=== PATIENT | female | born 1940 | race Caucasian/White ===

== ENCOUNTER → 2016-12-19 | Day surgery (SDC) | payer OTHER, BC ==
[2016-12-07 13:54] VITALS: Ht 154.9 cm; Wt 71.8 kg
[~2016-12-19] VITALS: Ht 154.9 cm; Wt 71.8 kg
[~2016-12-19] MED LIST: ACET-1256 PO; ASPI81TA21 PO; CAND1TAB19 PO; CARV12.52 PO; CHOL100010 PO; CLZ750 PO; COEN150C PO; CYAN3INJ IM; CYCL0.052 OP; CYCL0.052 OPB; GLC/500 PO; GLUCTAB6 PO; HYDR-5688 PO; IBUP-1050 PO; INDA1TAB3 PO; INSDGI SC; LIDOCAINE HCL 2% 2 ML VIAL (20MG/ML) ONE; MAGN200T3 PO; MAGNESIUM PO; METH1CAP PO; OMEG10007 PO; PRAV20TA PO; PREG1CAP28 PO; PREG1CAP70 PO; PREMARIN PO; PROPOFOL IV EMULSION 10 MG/ML 20 ML VIAL IV ONE; RANITDINE PO; RMCI INJ; RMCI IV; SODIUM CHLORIDE 0.9% 500ML 500 ML IV ONE; TRAM-10 PO; [UNRECOGNIZED DRUG - CODE] PO
--- NOTE | 2016-12-19 08:46 | Endo History and Physical ---
History & Physical Date of Service: Dec 19, 2016. Chief Complaint: ulcerative colitis Referring Physician: Dr. Ga Mott History of Present Illness 76 yo CF who presents for colonoscopy secondary to ulcerative colitis. Past Medical History Diabetes, Neurological Disorder, Arthritis, Fractures, Gastrointestinal Disorder , Reflux, Hypertension, Other Past Surgical History Hx Cardiac Surgery: No Hx Internal Defibrillator: No Hx Pacemaker: No Hx Abdominal Surgery: Yes (DIOR BSO) Hx Post-Op Nausea and Vomiting: No Hx Cancer Surgery: No Hx Thoracic Surgery: No Hx Orthopedic: Yes (LEFT BUNIONECTOMY/FOOT CORRECTION, LUMBAR FUSION) Hx Urinary Tract Surgery: No Family History None Social History Smoking Status: Never Smoker Hx Substance Use: No Hx Alcohol Use: No Allergies Coded Allergies: Naproxen (Verified Allergy, Intermediate, RASH, 12/07/16) "ITCHY AND MISERABLE" Spironolactone (Verified Adverse Reaction, Severe, fluid retention, ) Lisinopril (Verified Adverse Reaction, Mild, COUGH, 12/07/16) Oxycodone (Verified Adverse Reaction, Mild, dizziness/lightheadedness/ not feeling in control, 12/07/16) Telmisartan (Verified Adverse Reaction, Mild, swelling in legs, 12/07/16) Current Medications Reported Home Medications Medications Dose Route/Sig Max Daily Dose Days Date Category Dose Instructions Lyrica (Pregabalin) 75 Mg Cap 1 Dose PO TID 12/07/16 Reported TAKES 1 CAP IN AM TAKES 1 CAP IN AFTERNOON TAKES 2 CAPS IN PM Coreg (Carvedilol) 12.5 Mg Tab 12.5 Mg PO BID 12/07/16 Reported Pravachol (Pravastatin Sodium) 20 Mg Tab 20 Mg PO HS 12/07/16 Reported Lantus (Insulin Glargine) 100 Unit/Ml Inj 12 Units SC QPM 10/27/16 Reported Lozol (Indapamide) 1.25 Mg Tab 1.25 Mg PO QAM 02/15/16 Reported Glucophage (Metformin Hcl) 500 Mg Tab 1,000 Mg PO Q1800 02/15/16 Reported Vitamin D (Cholecalciferol) 1,000 Inter.unit Tab 1,000 Inter.unit PO HS 12/21/15 Reported Vitamin B-12 Inj (Cyanocobalamin) Inj 1 Ml IM WK 30 10/19/15 Reported Remicade (Infliximab) 100 Mg/10 Ml Inj 1 Dose IV Q8WK 07/27/15 Reported Candesartan Cilexetil 16 Mg Tab 16 Mg PO BID 07/27/15 Reported Magnesium 200 Mg Tab 250 Mg PO QAM 07/13/15 Reported Colazal (Balsalazide) 750 Mg Cap 3 Tab PO TID 07/13/15 Reported Flexi Joint (Faxkgfkfnad-Qypkeiqgvcy-Tgg-Vi) 1 Tab Tab 1 Tab PO BID 06/16/15 Reported Premarin (Estrogens, Conjugated) 0.3 Mg Tab 0.3 Mg PO 2XWK 11/14/14 Reported Restasis (Cyclosporine (Ophth)) 0.05 % Emu 1 Drop OPB BID 09/11/14 Reported Glucophage (Metformin Hcl) 500 Mg Tab 500 Mg PO QAM 08/20/13 Reported Co Q-10 (Coenzyme Q10 (Ubidecarenone)) 150 Mg Cap 400 Mg PO QAM 06/27/12 Reported [place]-3 (Fish Oil) 1 Ea Cap 1 Cap PO BID 06/27/12 Reported Ecotrin Or Generic (Aspirin) 81 Mg Tab 81 Mg PO HS 06/27/12 Reported Vital Signs Weight (Kilograms): 71.82 Height (Feet): 5 Height (Inches): 1 Date Time Temp Pulse Resp B/P Pulse Ox O2 Delivery O2 Flow Rate FiO2 12/19/16 08:42 36.5 61 18 156/72 95 Room Air Physical Exam General Appearance: WD/WN, no apparent distress Respiratory/Chest: Auscultation: breath sounds normal Cardiovascular: Heart Auscultation: RRR Abdomen: Bowel Sounds: normal Inspection & Palpation: soft, non-distended, no tenderness, guarding & rebound Assessment and Plan Assessment: 76 yo CF who presents for colonoscopy secondary to ulcerative colitis. Plan: Proceed with colonoscopy.
--- NOTE | 2016-12-19 09:51 | Discharge Instructions ---
Endoscopy Patient Instructions Date / Procedure(s) Performed Dec 19, 2016. Colonoscopy Allergy Information Coded Allergies: Naproxen (Verified Allergy, Intermediate, RASH, 12/07/16) "ITCHY AND MISERABLE" Spironolactone (Verified Adverse Reaction, Severe, fluid retention, ) Lisinopril (Verified Adverse Reaction, Mild, COUGH, 12/07/16) Oxycodone (Verified Adverse Reaction, Mild, dizziness/lightheadedness/ not feeling in control, 12/07/16) Telmisartan (Verified Adverse Reaction, Mild, swelling in legs, 12/07/16) Discharge Date / Findings Dec 19, 2016. Colon polyp Ulcerative colitis s/p biopsies Medication Instructions Stopped Medication(s): told not to take Metformin today,last dose ASA Monday OK to resume all medications today as prescribed Reported Home Medications Medications Dose Route/Sig Max Daily Dose Days Date Category Dose Instructions Lyrica (Pregabalin) 75 Mg Cap 1 Dose PO TID 12/07/16 Reported TAKES 1 CAP IN AM TAKES 1 CAP IN AFTERNOON TAKES 2 CAPS IN PM Coreg (Carvedilol) 12.5 Mg Tab 12.5 Mg PO BID 12/07/16 Reported Pravachol (Pravastatin Sodium) 20 Mg Tab 20 Mg PO HS 12/07/16 Reported Lantus (Insulin Glargine) 100 Unit/Ml Inj 12 Units SC QPM 10/27/16 Reported Lozol (Indapamide) 1.25 Mg Tab 1.25 Mg PO QAM 02/15/16 Reported Glucophage (Metformin Hcl) 500 Mg Tab 1,000 Mg PO Q1800 02/15/16 Reported Vitamin D (Cholecalciferol) 1,000 Inter.unit Tab 1,000 Inter.unit PO HS 12/21/15 Reported Vitamin B-12 Inj (Cyanocobalamin) Inj 1 Ml IM WK 30 10/19/15 Reported Remicade (Infliximab) 100 Mg/10 Ml Inj 1 Dose IV Q8WK 07/27/15 Reported Candesartan Cilexetil 16 Mg Tab 16 Mg PO BID 07/27/15 Reported Magnesium 200 Mg Tab 250 Mg PO QAM 07/13/15 Reported Colazal (Balsalazide) 750 Mg Cap 3 Tab PO TID 07/13/15 Reported Flexi Joint (Fsyxxjirxtz-Hncqweimauh-Qee-Vi) 1 Tab Tab 1 Tab PO BID 06/16/15 Reported Premarin (Estrogens, Conjugated) 0.3 Mg Tab 0.3 Mg PO 2XWK 11/14/14 Reported Restasis (Cyclosporine (Ophth)) 0.05 % Emu 1 Drop OPB BID 09/11/14 Reported Glucophage (Metformin Hcl) 500 Mg Tab 500 Mg PO QAM 08/20/13 Reported Co Q-10 (Coenzyme Q10 (Ubidecarenone)) 150 Mg Cap 400 Mg PO QAM 06/27/12 Reported [place]-3 (Fish Oil) 1 Ea Cap 1 Cap PO BID 06/27/12 Reported Ecotrin Or Generic (Aspirin) 81 Mg Tab 81 Mg PO HS 06/27/12 Reported Provider Instructions Activity Restrictions - No exercising or heavy lifting for 24 hours. - Do not drink alcohol the day of the procedure. - Do not drive a car or operate machinery until the day after the procedure. - Do not make any important decisions or sign important papers in 24 hours after the procedure. Following Day: - Return to full activity which may include returning to work/school. Diet Start your diet with liquids and light foods (jello, soup, juice, toast). Then eat your usual diet if not nauseated. Treatment For Common After Affects For mild abdominal pain, bloating, or excessive gas: - Rest - Eat lightly - Lie on right side Follow-Up Information Follow-up with Dr. Ga Mott as scheduled Anesthesia Information What You Should Know You have had a procedure that required some medicine to reduce anxiety and discomfort. This treatment is called moderate sedation. After receiving the treatment, you may be sleepy, but you will be able to breathe on your own. The effects of the treatment may last for several hours. Follow these instructions along with Activity/Diet recommendations noted above: * Do NOT do anything where dizziness or clumsiness would be dangerous. * Rest quietly at home today, then you can be up and about tomorrow. * Have a responsible person stay with you the rest of today. * You may have had an I.V. today. If so, you may take the dressing off later today. Recommendations Call your doctor if: * Trouble breathing * Continuous vomiting for more than 24 hours * Temperature above 101 degrees * Severe abdominal pain or bloating * Pain not relieved by pain medicine ordered * There is increased drainage or redness from any incision * A large amount of rectal bleeding greater than 2-3 tablespoons. (If you had a polyp/s removed or have hemorrhoids, a small amount of blood - from the rectum is to be expected.) * You have any unanswered questions or concerns. IN THE EVENT OF A SERIOUS EMERGENCY, GO TO THE NEAREST EMERGENCY ROOM Your discharge instructions were prepared by provider Gerber Garcia. Patient Instructions Signature Page Cecily Cote Patient (or Guardian) Signature/Date: I have read and understand the instructions given to me by my caregivers. Caregiver/RN/Doctor Signature/Date: The above-named patient and/or guardian has received patient instructions on this date. + Original Patient Signature Page (only) stays with chart. Please make copy for patient.
[2016-12-19 10:04] VITALS: BP 152/74; PULSE 56; O2SAT 97
--- NOTE | 2016-12-19 10:04 | Anesthesiology Progress Note ---
Anesthesia Post Op Note Date & Time Dec 19, 2016 at 10:04 Vital Signs Pain Intensity: 0 Vital Signs Past 12 Hours Date Time Temp Pulse Resp B/P Pulse Ox O2 Delivery O2 Flow Rate FiO2 12/19/16 09:54 59 18 135/66 96 Room Air 12/19/16 09:39 61 18 125/65 95 Room Air 12/19/16 08:42 36.5 61 18 156/72 95 Room Air Notes Mental Status: alert / awake / arousable, participated in evaluation Pt Amnestic to Procedure: Yes Nausea / Vomiting: adequately controlled Pain: adequately controlled Airway Patency, RR, SpO2: stable & adequate BP & HR: stable & adequate Hydration State: stable & adequate Anesthetic Complications: no major complications apparent
--- NOTE | 2016-12-19 11:06 | GI REPORT ---
Procedure Date: 12/19/2016 9:03 AM Procedure: Colonoscopy Indications: Follow-up of chronic ulcerative pancolitis Medicines: Monitored Anesthesia Care Complications: No immediate complications. Estimated Blood Loss: Estimated blood loss: none. Procedure: Pre-Anesthesia Assessment: - Prior to the procedure, a History and Physical was performed, and patient medications and allergies were reviewed. The patient's tolerance of previous anesthesia was also reviewed. The risks and benefits of the procedure and the sedation options and risks were discussed with the patient. All questions were answered, and informed consent was obtained. Prior Anticoagulants: The patient has taken aspirin, last dose was 2 days prior to procedure. ASA Grade Assessment: III - A patient with severe systemic disease. After reviewing the risks and benefits, the patient was deemed in satisfactory condition to undergo the procedure. After I obtained informed consent, the scope was passed under direct vision. Throughout the procedure, the patient's blood pressure, pulse, and oxygen saturations were monitored continuously. The scope was introduced through the anus and advanced to the terminal ileum. The colonoscopy was performed without difficulty. The patient tolerated the procedure well. The quality of the bowel preparation was good. The terminal ileum, ileocecal valve, appendiceal orifice, and rectum were photographed. Findings: A 3 mm polyp was found in the ascending colon. The polyp was sessile. The polyp was removed with a cold biopsy forceps. Resection and retrieval were complete. Inflammation characterized by erythema was found in a continuous and circumferential pattern from the rectum to the cecum. This was mild in severity. Biopsies were taken with a cold forceps for histology. Impression: - One 3 mm polyp in the ascending colon, removed with a cold biopsy forceps. Resected and retrieved. - Inflammation was found from the rectum to the cecum secondary to quiescent ulcerative colitis. Biopsied. Recommendation: - Resume previous diet. - Continue present medications. - Repeat colonoscopy for surveillance based on pathology results. - Return to primary care physician as previously scheduled. Gerber Garcia, DO 12/19/2016 9:50:00 AM This report has been signed electronically. Note Initiated On: 12/19/2016 9:03 AM I attest to the content of the Intraoperative Record and orders documented therein, exceptions below
== END | disposition home or self-care (01) ==
LOC: C.GI 08:10
PROVIDERS: ATTEND Internal Medicine
DX: K51.90 Ulcerative colitis, unspecified, without complications (principal); D12.2 Benign neoplasm of ascending colon; K21.9 Gastro-esophageal reflux disease without esophagitis; E11.9 Type 2 diabetes mellitus without complications; M19.90 Unspecified osteoarthritis, unspecified site; I10 Essential (primary) hypertension; Z98.1 Arthrodesis status; Z88.8 Allergy status to other drugs, medicaments and biological substances

== ENCOUNTER → 2016-12-22 | Outpatient (CLI) | payer OTHER, BC ==
[~2016-12-22] MED LIST changes: -LIDOCAINE HCL 2% 2 ML VIAL (20MG/ML) ONE; -PROPOFOL IV EMULSION 10 MG/ML 20 ML VIAL IV ONE; -SODIUM CHLORIDE 0.9% 500ML 500 ML IV ONE
[2016-12-22 11:26] LABS: BASO % 0.4 %; BASO ABS # 0.02 K/uL (0-0.2); COMPLETE YES; HEMATOCRIT 35.6 % (37-47); LYMPH % 30.1 %; LYMPH ABS # 1.47 K/uL (1.2-3.4); MEAN CELL VOLUME 89.4 fL (80-100); MEAN CORPUSCULAR HEMOGLOBIN 31.2 pg (25-34); MEAN CORPUSCULAR HGB CONC 34.8 g/dl (32-36); MEAN PLATELET VOLUME 11.5 fL (7.4-10.4); MONO % 5.9 %; NEUT % 62.6 %; PLATELET COUNT 193 K/uL (130-400); RED BLOOD COUNT 3.98 M/uL (4.2-5.4); WHITE BLOOD COUNT 4.88 K/uL (4.8-10.8)
[2016-12-22 11:46] LABS: ALKALINE PHOSPHATASE 48 U/L (45-117); ALT/SGPT 20 U/L (12-78); AST/SGOT 17 U/L (15-37); BLOOD UREA NITROGEN 18 mg/dl (7-18); BUN/CREATININE RATIO 18.1 (10-20); C-REACTIVE PROTEIN 0.32 mg/dl (0-0.29); CALCIUM 8.5 mg/dl (8.5-10.1); CARBON DIOXIDE 27 mmol/L (21-32); CHLORIDE 107 mmol/L (98-107); GLUCOSE 192 mg/dl (70-99); POTASSIUM 3.8 mmol/L (3.5-5.1); SODIUM 142 mmol/L (136-145)
[2016-12-22 12:00] LABS: THYROID STIMULATING HORMONE 0.884 uIu/ml (0.300-4.500)
[2016-12-22 13:46] LABS: ESTIMATED AVERAGE GLUCOSE 148 mg/dl; HA1C FLAG Normal (Normal)
[2016-12-26 10:48] LABS: QUANTIF TB AG-NIL <0.00 IU/ML; QUANTIFERON NIL 0.04 IU/ML
== END | disposition home or self-care (01) ==
LOC: C.LAB1850 10:13
PROVIDERS: ATTEND Internal Medicine
DX: E11.9 Type 2 diabetes mellitus without complications (principal); K51.50 Left sided colitis without complications

== ENCOUNTER → 2017-02-21 | Outpatient (CLI) | payer OTHER, BC ==
[~2017-02-21] MED LIST changes: +ASCO1CAP3 PO; +CYNI1000 INJ; +ESTR0.3T PO; +FERR1TAB61 PO; +GLUC1CAP35 PO; +LTRSCR45 EX; +MAGN250T6 PO; -PRAV20TA PO; +PRM/3 PO; +RANI1TAB75 PO
--- NOTE | 2017-02-21 13:08 | MAMMOGRAPHY REPORT ---
BILATERAL DIGITAL DIAGNOSTIC MAMMOGRAM TOMOSYNTHESIS WITH CAD AND TARGETED LEFT ULTRASOUND: 02/21/2017 CLINICAL HISTORY: 77-year-old woman with a history of left breast clear to yellow nipple discharge f or approximately one year. Over the past 2 weeks the nipple discharge has become bloody. TECHNIQUE: Bilateral CC and MLO 2-D digital and tomosynthesis images were obtained. Spot magnifica tion left CC and ML views of the subareolar breast were also obtained. Current study was also evalu ated with a Computer Aided Detection (CAD) system. COMPARISON: Comparison is made to exams dated: 02/01/2016 ultrasound, 02/01/2016 mammogram, 4 mammogram, 04/19/2010 mammogram - [facility], 04/17/2009, and 06/13/2006 mammogram - [facility]. BREAST COMPOSITION: There are scattered areas of fibroglandular density in both breasts. FINDINGS: The parenchymal pattern is similar to prior mammograms. There are scattered stable benign -appearing rounded and punctate microcalcifications in the breasts. On the spot magnification views of the left subareolar breast, the microcalcifications scattered throughout the anterior left breas t appear similar in number and configuration comparing to last years spot magnification views and al so to prior full-field mammograms. No obvious new mass, focal area of architectural distortion or n ew suspicious calcifications are seen bilaterally. There is 17 x 19 mm partially circumscribed and lobulated mass in the subareolar right breast that appears similar to the prior 2015 and 2013 mammog jesse, may be slightly increased in prominence comparing to the 2009 exam. Targeted ultrasound was performed in the retroareolar and periareolar left breast. In the 9:00 elfego areolar breast, a benign anechoic simple cyst measuring 3.6 mm is again identified. In the 6:00 per iareolar breast, there is an isoechoic microlobulated solid vascular mass with intraductal fingerlik e projections extending into the ducts surrounding it. This measures 5.5 x 3.2 x 9.0 mm and could r epresent a papilloma or possibly DCIS. This is likely the cause the patient's bloody nipple dischar ge. Definitive characterization with an ultrasound guided core needle biopsy is recommended. IMPRESSION: ACR BI-RADS CATEGORY 4B: INTERMEDIATE SUSPICION FOR MALIGNANCY, TARGETED ULTRASOUND ACR BI-RADS CATEGORY 4B: INTERMEDIATE SUSPICION FOR MALIGNANCY 1. Ultrasound guided core needle biopsy is recommended for a probable intraductal mass in the 6:00 periareolar left breast, which may be the cause of the patient's bloody nipple discharge. 2. At the time of the ultrasound-guided core biopsy, would also recommend sonographic evaluation in the subareolar right breast. Although the above described asymmetry appeared similar dating back t o 2013, it is slightly increased in prominence comparing to the 2009, an ultrasound should be perfor med to exclude any possible intraductal process on the right breast as well. These results and recommendations were discussed with the patient at the time of the exam. She tent atively scheduled the follow-up appointment prior to leaving our department. Approximately 10% of breast cancers are not detected with mammography. A negative mammographic repor t should not delay biopsy if a clinically suggestive mass is present. Loni Troncoso M.D. ay/:02/21/2017 11:05:28 Apple Packing Header: Dejah HARKINS(Alexis)(Yuriy), [facility] letter sent: Abnormal 4/5 BI-RADS Code: ACR BI-RADS Category 4B: Intermediate Suspicion For Malignancy Ultrasound BI-RADS: AC R BI-RADS Category 4B: Intermediate Suspicion For Malignancy
== END | disposition home or self-care (01) ==
LOC: C.MAMM 10:01
PROVIDERS: ATTEND Family Medicine
DX: N64.52 Nipple discharge (principal); N63 Unspecified lump in breast

== ENCOUNTER → 2017-02-28 | Outpatient (CLI) | payer OTHER, BC ==
--- NOTE | 2017-02-28 14:19 | Discharge Instructions ---
Discharge Instructions Procedure Procedure Date: February 28, 2017. Reason for visit: Left Mass. Discharge Discharge Date: February 28, 2017. Discharge Diagnosis: post left breast ultrasound guided core biopsy Instructions Activity Recommendations: Additional Limitations (see below) Return to School/Work: no limitations Recommended Home Diet: No Limitations Provider Instructions: ACTIVITY RECOMMENDATIONS: * No lifting, pushing, pulling or exercising the affected side for three days. RETURN TO SCHOOL/WORK: * You may return to work/school after the procedure, but do not perform any strenuous activities for 24 to 48 hours. MEDICATIONS: * Tylenol (two 325 mg) every four to six hours if needed for mild pain (if not allergic to Tylenol). DIET: * Resume previous diet. SPECIAL CARE INSTRUCTIONS: * Keep biopsy site dry for 24 hours. May shower after 24 hours, but do not soak (bathe) incision. * May remove Tegaderm (plastic patch) tomorrow AFTER showering. * Leave the steri-strips on for one week. Allow the steri-strips to fall off by themselves. If not off after one week, you may remove them. You may place a Bandaid crosswise over the strips, if desired. * Apply ice 10 minutes on and 10 minutes off as needed. * Wear a bra at bedtime to sleep more comfortably for 2-3 days. * Your referring physician should have the results after approximately 5 to 7 business days. * Call for unusual bleeding, fever, drainage, etc or if you have any questions call [phone] during normal business hours or after hours call Dr Troncoso, . FOLLOW UP VISIT: Follow-up with Referring Physician as scheduled. Allergies Coded Allergies: Naproxen (Verified Allergy, Intermediate, RASH, 02/20/17) "ITCHY AND MISERABLE" Pravastatin (Verified Allergy, Unknown, MUSCLE ACHES,STIFF JOINTS, 02/20/17) Spironolactone (Verified Adverse Reaction, Severe, fluid retention, 02/20/17 ) Lisinopril (Verified Adverse Reaction, Mild, COUGH, 02/20/17) Oxycodone (Verified Adverse Reaction, Mild, dizziness/lightheadedness/ not feeling in control, 02/20/17) Telmisartan (Verified Adverse Reaction, Mild, swelling in legs, 02/20/17) Julieth Velazquez Recommendations: Call your doctor if: * Temperature above 101 degrees * Pain not relieved by pain medicine ordered * There is increased drainage or redness from any incision * You have any unanswered questions or concerns. Your Doctors Instructions noted above were prepared by provider Loni Troncoso. Patient Signature Section: Patient Instructions Signature Page Cecily Kera Patient (or Guardian) Signature/Date: I have read and understand the instructions given to me by my caregivers. Caregiver/RN/Doctor Signature/Date: The above-named patient and/or guardian has received patient instructions on this date. + Original Patient Signature Page (only) stays with chart. Please make copy for patient.
--- NOTE | 2017-03-06 14:45 | MAMMOGRAPHY REPORT ---
ULTRASOUND GUIDED BIOPSY LEFT BREAST: 02/28/2017 CLINICAL HISTORY: Indeterminate solid probable intraductal 5.5 mm mass in the 6:00 periareolar left breast. Patient has a clinical history of left nipple discharge present for one year but recently h as become blood-tinged. COMPARISON: Comparison is made to exams dated: 02/21/2017 ultrasound, 02/21/2017 mammogram, 02/01/2016 u ltrasound, 02/01/2016 mammogram, and 04/19/2010 mammogram - [facility]. PATIENT CONSENT: The procedure, risks and benefits were discussed with the patient and informed writ ten consent was obtained. Specific risks to this procedure include: bleeding, infection, puncture of adjacent structure, nontarget biopsy, sampling error, metal allergy and medication reaction. PROCEDURE DESCRIPTION: A time out was performed and the left breast was agreed as the site of biopsy . The skin was prepped and draped in the usual sterile fashion. The solid, probable intraductal mass in the 6:00 periareolar left breast was chosen as the target for biopsy. Subcutaneous and intrapare nchymal 1% buffered lidocaine was administered as local anesthesia. A skin incision was made. Throu gh the incision, 3 samples were taken with a 12-gauge Celero biopsy device. A metallic marker was pl aced at the biopsy site. Hemostasis was achieved after manual compression. The patient tolerated the procedure well and there was no immediate complication. The samples were sent to the pathology dep artment in an appropriately labeled container. Postprocedure left CC and ML 2-D digital and tomosynthesis images were obtained. A new ribbon-shape d metallic biopsy marker is seen in the 6:00 anterior subareolar left breast, at the site of the rec ent biopsy. There is a small 13 mm hematoma at the biopsy site. IMPRESSION: ULTRASOUND GUIDED BIOPSY Status post ultrasound-guided core needle biopsy of a probable intraductal mass in the 6:00 anterior left breast, with biopsy marker placed at the site. The patient will receive notification of the biopsy results from her referring physician. Loni Troncoso M.D. ay/:03/06/2017 13:33:20 Accounting Assistant: Marilyn DUPREE)(Yuriy), [facility]
== END | disposition home or self-care (01) ==
LOC: C.MAMM 13:40
PROVIDERS: ATTEND Family Medicine
DX: N63 Unspecified lump in breast (principal)

== ENCOUNTER 2017-03-29 07:16 | Inpatient (IN) | payer OTHER, BC ==
[2017-03-21 11:46] VITALS: BMI 32.0
--- NOTE | 2017-03-21 12:30 | PAT Medication Instructions ---
Service Date March 21, 2017. Current Home Medication List Aspirin Enteric Coated (Ecotrin Or Generic), 81 MG PO HS Balsalazide (Colazal), 3 TAB PO TID Candesartan Cilexetil (Candesartan Cilexetil), 16 MG PO BID Carvedilol (Coreg), 6.25 MG PO BID Cholecalciferol (Vitamin D), 1,000 INTER.UNIT PO HS Coenzyme Q10 (Ubidecarenone) (Co Q-10), 400 MG PO QPM Cyanocobalamin (Vitamin B-12 Inj), 1 ML IM WK Cyclosporine (Ophth) (Restasis), 1 DROP OP BID Fish Oil ([place]-3), 1 CAP PO BID Tgvdkybqbhs-Iyzqgovpxyg-Grl-Vi (Flexi Joint), 1 TAB PO BID Ibuprofen (Advil), 600 MG PO PRN Indapamide (Lozol), 1.25 MG PO QAM Infliximab (Remicade), 1 DOSE INJ [id number] Insulin Glargine (Lantus), 16 UNITS SC QPM Metformin Hcl (Glucophage), 500 MG PO QAM Metformin Hcl (Glucophage), 1,000 MG PO q1800 Pregabalin (Lyrica), 75 MG PO AM/PM Pregabalin (Lyrica), 150 MG PO HS [Magnesium], 1 TAB PO QAM [Premarin], 0.325 MG PO 2XWEEK [Ranitdine], 75 MG PO QAM Medication Instructions For Your Scheduled Surgery Ibuprofen (Advil), 600 MG PO PRN (patient will check with surgeon for instructions) Balsalazide (Colazal), 3 TAB PO TID (patient will check with surgeon for instructions) Premarin, 0.325 MG PO 2XWEEK (patient will check with surgeon for instructions) Cyanocobalamin (Vitamin B-12 Inj), 1 ML IM WK (continue as usual) Infliximab (Remicade), 1 DOSE INJ [id number] (patient will check with GI doctor ( prescribing physician) for instructions) - Hold the following medications 2 weeks prior to surgery: Fish Oil ([place]-3), 1 CAP PO BID Coenzyme Q10 (Ubidecarenone) (Co Q-10), 400 MG PO QPM Vmhucrzxoff-Pwooqafvaic-Dki-Vi (Flexi Joint), 1 TAB PO BID - Hold the following medications 48 hours prior to surgery: Metformin Hcl (Glucophage) - Hold the following medications 24 hours prior to surgery: Candesartan Cilexetil (Candesartan Cilexetil), 16 MG PO BID (last dose will be in the morning on 03/28/17) - Hold the following medications the morning of surgery: Magnesium 1 TAB PO QAM Indapamide (Lozol), 1.25 MG PO QAM - Take the following medications the morning of surgery with a sip of water: Pregabalin (Lyrica), 75 MG PO AM/PM Carvedilol (Coreg), 6.25 MG PO BID Cyclosporine (Ophth) (Restasis), 1 DROP OP BID Ranitidine 75 MG PO QAM - Take the following medications as scheduled the night before surgery: Pregabalin (Lyrica), 150 MG PO HS Carvedilol (Coreg), 6.25 MG PO BID Aspirin Enteric Coated (Ecotrin Or Generic), 81 MG PO HS Cholecalciferol (Vitamin D), 1,000 INTER.UNIT PO HS Cyclosporine (Ophth) (Restasis), 1 DROP OP BID nsulin Glargine (Lantus), 16 UNITS SC QPM If you have any questions please call us at [phone] or [phone] ( Angela) or [phone]
[2017-03-21 13:14] LABS: BASO % 0.2 %; BASO ABS # 0.01 K/uL (0-0.2); COMPLETE YES; EOS % 2.4 %; HEMATOCRIT 36.5 % (37-47); IG% 0.2 %; LYMPH % 46.4 %; LYMPH ABS # 1.97 K/uL (1.2-3.4); MEAN CELL VOLUME 88.8 fL (80-100); MEAN CORPUSCULAR HEMOGLOBIN 30.7 pg (25-34); MEAN CORPUSCULAR HGB CONC 34.5 g/dl (32-36); MONO % 8.2 %; NEUT % 42.6 %; PLATELET COUNT 197 K/uL (130-400); RED BLOOD COUNT 4.11 M/uL (4.2-5.4); WHITE BLOOD COUNT 4.25 K/uL (4.8-10.8)
--- NOTE | 2017-03-21 13:15 | DIAGNOSTIC IMAGING REPORT ---
CHEST PREADMISSION(PA/LAT) CLINICAL HISTORY: Preoperative evaluation. COMPARISON STUDY: Chest radiograph October 29, 2015. FINDINGS: Lumbar spine fusion hardware is noted. There is no pneumothorax or pleural effusion. There is no consolidation to suggest pneumonia. Mild cardiomegaly is unchanged. There is no evidence of pulmonary edema. IMPRESSION: 1. No acute cardiopulmonary findings. 2. Mild cardiomegaly. Electronically signed by: Ruben Arevalo M.D. 03/21/2017 1:14 PM Dictated Date/Time: 03/21/2017 1:09 PM
[2017-03-21 13:21] LABS: MANUAL MICROSCOPIC REQUIRED? NO; REVIEW REQ? NO; URINE APPEARANCE CLEAR (CLEAR); URINE BILIRUBIN NEG (NEG); URINE COLOR YELLOW; URINE EPITHELIAL CELL AUTO >30 /lpf (0-5); URINE NITRITE NEG (NEG); URINE PH 5.5 (4.5-7.5); UROBILINOGEN NEG (NEG)
[2017-03-21 14:03] LABS: BUN/CREATININE RATIO 23.5 (10-20); CALCIUM 9.1 mg/dl (8.5-10.1); CREATININE 0.92 mg/dl (0.60-1.20)
[~2017-03-29] VITALS: Ht 154.9 cm; Wt 75.9 kg
[2017-03-29] VITALS (10 sets, daily range): BP systolic 118–163; BP diastolic 66–85; PULSE 48–81; TEMP 36.3–36.8; O2SAT 95–100; Ht 154.9 cm; Wt 75.9 kg
[~2017-03-29 07:16] MED LIST changes: -ACET-1256 PO; +ALBUMIN HUMAN 5% 12.5 GM/250 ML VIAL IV ONE; -ASCO1CAP3 PO; +CEFAZOLIN 1000MG/55 ML D5W IV SCH; -CYCL0.052 OPB; -CYNI1000 INJ; -ESTR0.3T PO; -FERR1TAB61 PO; -GLUC1CAP35 PO; -HYDR-5688 PO; +LACTATED RINGER'S 1000ML 1,000 ML IV SCH; -LTRSCR45 EX; -MAGN200T3 PO; -MAGN250T6 PO; -METH1CAP PO; -PRM/3 PO; -RANI1TAB75 PO; -RMCI IV; -TRAM-10 PO; -[UNRECOGNIZED DRUG - CODE] PO
[2017-03-29] MEDS ORDERED: FENTANYL CITRATE INJ 50 MCG/1 ML 2 ML VIAL ONE ×3 (08:09→11:19)
[2017-03-29] MEDS ORDERED: MIDAZOLAM HCL 1 MG/ML 2ML VIAL ONE (08:09)
--- NOTE | 2017-03-29 08:25 | History & Physical Bridge Note ---
H&P Re-Evaluation Bridge Note: I have examined the patient, reviewed the History & Physical and in the interval since the performance of the History & Physical I have noted the following changes of clinical significance: No changes noted
--- NOTE | 2017-03-29 08:27 | History and Physical ---
History & Physical Date Mar 29, 2017. Chief Complaint back and leg pain History of Present Illness The patient is a 77 year old female with complaints of Past Medical/Surgical History Medical Problems: (1) Hypertension (2) IBS (irritable bowel syndrome) (3) Sciatica Surgical Problems: (1) H/O: hysterectomy Additional History Hepatic Disease: No Endocrine Disorder: No Kidney Disease: No Hypertension: No Heart Disease: No Bleeding Tendencies: No Infectious Diseases: No Allergies Coded Allergies: Naproxen (Verified Allergy, Intermediate, RASH, 03/29/17) "ITCHY AND MISERABLE" Chlorthalidone (Verified Allergy, Unknown, UNKNOWN, 03/29/17) Felodipine (Verified Allergy, Unknown, UNKNOWN, 03/29/17) Spironolactone (Verified Adverse Reaction, Severe, fluid retention, 03/29/17 ) Lisinopril (Verified Adverse Reaction, Mild, COUGH, 03/29/17) Oxycodone (Verified Adverse Reaction, Mild, dizziness/lightheadedness/ not feeling in control, 03/29/17) Telmisartan (Verified Adverse Reaction, Mild, swelling in legs, 03/29/17) Pravastatin (Verified Adverse Reaction, Unknown, MUSCLE ACHES,STIFF JOINTS , 03/29/17) Simvastatin (Verified Adverse Reaction, Unknown, muscle aches per PCP records , 03/29/17) Home Medications Scheduled Aspirin Enteric Coated (Ecotrin Or Generic), 81 MG PO HS Balsalazide (Colazal), 3 TAB PO TID Candesartan Cilexetil (Candesartan Cilexetil), 16 MG PO BID Carvedilol (Coreg), 6.25 MG PO BID Cholecalciferol (Vitamin D), 1,000 INTER.UNIT PO HS Coenzyme Q10 (Ubidecarenone) (Co Q-10), 400 MG PO QPM Cyanocobalamin (Vitamin B-12 Inj), 1 ML IM WK Cyclosporine (Ophth) (Restasis), 1 DROP OP BID Fish Oil ([place]-3), 1 CAP PO BID [id number]-Ohr-Vi (Flexi Joint), 1 TAB PO BID Ibuprofen (Advil), 600 MG PO PRN Indapamide (Lozol), 1.25 MG PO QAM Infliximab (Remicade), 1 DOSE INJ [id number] Insulin Glargine (Lantus), 16 UNITS SC QPM Metformin Hcl (Glucophage), 500 MG PO QAM Metformin Hcl (Glucophage), 1,000 MG PO q1800 Pregabalin (Lyrica), 75 MG PO AM/PM Pregabalin (Lyrica), 150 MG PO HS [Magnesium], 1 TAB PO QAM [Premarin], 0.325 MG PO 2XWEEK [Ranitdine], 75 MG PO QAM Physical Examination Skin: warm/dry, no rash Eyes: normal inspection, EOMI, sclerae normal ENT: normal ENT inspection, pharynx normal Head: normocephalic, atraumatic Neck: supple, no adenopathy, trachea midline Respiratory/Chest: lungs clear, normal breath sounds, no respiratory distress Cardiovascular: regular rate, rhythm, no edema, no murmur Abdomen / GI: normal bowel sounds, non tender Back: normal inspection Extremities: normal inspection, normal range of motion Neurologic/Psych: no motor/sensory deficits, alert, normal reflexes, oriented x 3 Diagnosis lumbar stenosis Plan of Treatment T12-L2 decompression, removal instrumentation L3-s1, fusion T12-S1 with b/l iliac bolts and SI joint fusion
[2017-03-29] MEDS ORDERED: SODIUM CHLORIDE 0.9% PF 50 ML VIAL ONE (08:37)
[2017-03-29] MEDS ORDERED: BACITRACIN 50000 UNIT VIAL ONE ×2 (08:37→11:59)
[2017-03-29] MEDS ORDERED: BUPIVACAINE/EPINEPHRINE 0.5% MPF 1:200,000 30 ML VIAL ONE (08:37)
[2017-03-29] MEDS ORDERED: ONDANSETRON INJ 2 MG/ML 2 ML VIAL IV PRN (08:45)
[2017-03-29] MEDS ORDERED: HYDROmorphone INJ 1 MG/ML SYR IV PRN (08:45)
[2017-03-29] MEDS ORDERED: ATROPINE SULFATE 0.1 MG/ML 5ML SYR IV PRN (08:45)
[2017-03-29] MEDS ORDERED: EpHEDrine SULFATE INJ 50 MG/ML AMP IV PRN (08:45)
[2017-03-29] MEDS ORDERED: PROMETHAZINE HCL INJ 6.25 MG in SODIUM CHLORIDE 0.9% 50ML 50 ML IV PRN (08:45)
[2017-03-29] MEDS ORDERED: HYDROmorphone INJ 2 MG/ML SYR/VIAL ONE ×2 (09:23→11:43)
[2017-03-29] MEDS ORDERED: PROPOFOL IV EMULSION 10 MG/ML 20 ML VIAL IV ONE (10:27)
[2017-03-29] MEDS ORDERED: LIDOCAINE HCL 2% 2 ML VIAL (20MG/ML) ONE (10:27)
[2017-03-29] MEDS ORDERED: ROCURONIUM BROMIDE 10 MG/ML 5 ML VIAL ONE (10:27)
[2017-03-29] MEDS ORDERED: DEXAMETHASONE SOD INJ 4 MG/ML VIAL ONE (10:27)
[2017-03-29] MEDS ORDERED: ONDANSETRON INJ 2 MG/ML 2 ML VIAL ONE ×2 (10:27→12:58)
[2017-03-29 12:18] LABS: HEMATOCRIT 23.9 % (37-47)
[2017-03-29] MEDS ORDERED: SODIUM CHLORIDE 0.9% 1000ML 1,000 ML IV SCH (12:22)
--- NOTE | 2017-03-29 12:22 | [facility] Post Operative Brief Note ---
Immediate Operative Summary Operative Date Mar 29, 2017. Pre-Operative Diagnosis Lumbar Stenosis Post-Operative Diagnosis Lumbar Stenosis Procedure(s) Performed T12-L2 Lumbar Laminectomy, Decompression; Pedicle Screw Fixation; Placement of Interbody Device AT L1-L2 AND L2-L3; T12-S1 Posterolateral Fusion; Application of Allograft; Bone Morphogenetic Protein, Iliac [place] Fixation; L3-S1 Hardware Removal Surgeon Dr. Avel Celeste Sew[employer] Treatment Plant Operator Surgeon(s) HECTOR Sellers_Ana Estimated Blood Loss 1100mL Findings stenosis Specimens A: Explanted Hardware
[2017-03-29] MEDS ORDERED: FLOSEAL HEMOSTATIC MATRIX 10ML TOP ONE (12:27)
[2017-03-29] MEDS ORDERED: LORAZEPAM 0.5 MG TAB PO PRN (12:30)
[2017-03-29] MEDS ORDERED: DO NOT ADMINISTER PNEUMOCOCCAL VACCINE PRN ×2 (12:30)
[2017-03-29] MEDS ORDERED: METOCLOPRAMIDE HCL INJ 5 MG/ML 2 ML VIAL IV PRN (12:30)
[2017-03-29] MEDS ORDERED: FAMOTIDINE 20 MG TAB PO PRN (12:30)
[2017-03-29] MEDS ORDERED: ALUMINUM/MAGNESIUM SUSP 30 ML UDC PO PRN (12:30)
[2017-03-29] MEDS ORDERED: SOD PHOSPHATE/SOD BIPHOSPHATE ENEMA 132 ML BTL PR PRN (12:30)
[2017-03-29] MEDS ORDERED: LORAZEPAM INJ 0.5 MG in SYRINGE 0.75 ML IV PRN (12:30)
[2017-03-29] MEDS ORDERED: BISACODYL 10 MG SUPP PR PRN (12:30)
[2017-03-29] MEDS ORDERED: NALOXONE HCL 0.4 MG/1 ML VIAL/CARP IV PRN ×2 (12:30)
[2017-03-29] MEDS ORDERED: PROMETHAZINE HCL INJ 12.5 MG in SODIUM CHLORIDE 0.9% 50ML 50 ML IV PRN (12:30)
[2017-03-29] MEDS ORDERED: DO NOT ADMINISTER FLU VACCINE PRN ×3 (12:30)
[2017-03-29] MEDS ORDERED: hydrOXYzine HCL 25 MG TAB PO PRN (12:30)
[2017-03-29] MEDS ORDERED: HYDROmorphone HCL 0.5MG/ML 50 ML CASSETTE IV PRN (12:30)
[2017-03-29] MEDS ORDERED: MAGNESIUM HYDROXIDE SUSP 30 ML UDC PO PRN (12:30)
[2017-03-29] MEDS ORDERED: PHARMACY GLYCEMIC MGMT CONSULT PRN (12:41)
[2017-03-29] MEDS ORDERED: NEOSTIGMINE METHYLSULFATE 1 MG/ML 10ML VIAL ONE (12:58)
[2017-03-29] MEDS ORDERED: LABETALOL HCL IV 5 MG/ML 20ML IV ONE (12:58)
[2017-03-29] MEDS ORDERED: GLYCOPYRROLATE INJ 0.2 MG/ML VIAL ONE (12:58)
[2017-03-29] MEDS ORDERED: KETOROLAC TROMETHAMINE 30 MG/ML VIAL ONE (12:58)
[2017-03-29] MEDS ORDERED: CALCIUM CHLORIDE 10% 10 ML SYR ONE (12:58)
[2017-03-29] MEDS: FENTANYL CITRATE INJ 50 MCG/1 ML 2 ML VIAL IV PRN ×2 (13:02→13:07)
--- NOTE | 2017-03-29 13:05 | DIAGNOSTIC IMAGING REPORT ---
LUMBAR SPINE 2 OR 3 VIEW CLINICAL HISTORY: T12-S1 DECOMPRESSION/FUSION/INTERBODY TECHNIQUE: Image intensifier COMPARISON STUDY: None FINDINGS: T12-S2 stabilization procedure IMPRESSION: Thoracolumbar stabilization procedure Electronically signed by: Dean Banks M.D. 03/29/2017 1:04 PM Dictated Date/Time: 03/29/2017 1:01 PM
[2017-03-29] MEDS: HYDROmorphone HCL 0.5MG/ML 50 ML CASSETTE ONE ×2 (13:07→13:24)
--- NOTE | 2017-03-29 13:31 | OPERATIVE REPORT ---
DATE OF OPERATION: 03/29/2017 PREOPERATIVE DIAGNOSES: Degenerative scoliosis, spinal stenosis. POSTOPERATIVE DIAGNOSES: Same. PROCEDURES PERFORMED: 1. Removal of posterior segmental instrumentation L3-L4, L4-L5, and L5-S1. 2. Exploration of fusion L3-L4, L4-L5, L5-S1. 3. Lumbar decompression, medial facetectomies, foraminotomies T12-L1, L1-L2, L2-L3. 4. Posterior spinal fusion T11-S1. 5. Bilateral SI joint fusions. 6. Placement of posterior segmental instrumentation, T12-S1 with bilateral iliac bolts. 7. Interbody fusion L1-L2, L2-L3. 8. Placement of PEEK cage 8 x 22 mm at L1-L2 and L2-L3. 9. Infuse collagen sponge combined with Mastergraft in the posterior gutters. 10. Placement of locally harvested morcellized autograft in posterior gutters and DBM in the interbody spaces. SURGEON: Dr. Brandon Celeste. ACT ENGLISH TUTOR: Elizabeth Weber PA-C. Due to the complex nature of the procedure, the entire surgery was performed with the teachers assistant of Elizabeth Weber PA-C. The medical laboratory assistant, under direct supervision, was involved in the actual performance of all aspects of the surgical procedure including hemostasis, tissue retraction and incision, instrument management, patient positioning, and wound closure. ANESTHESIA: General. DISPOSITION: The patient awakened and taken to PACU in stable condition. HISTORY OF PATIENT'S PROBLEMS: This is a 77-year-old female well known to me that presents with above-mentioned diagnosis. After failing an extensive course of nonoperative care, elected to undergo the above-mentioned procedure. Risks, benefits, pros, cons, and alternatives were outlined in detail preoperatively. OPERATION AND FINDINGS: PROCEDURE: The patient was met preoperatively, case discussed and all questions were addressed. At that point the patient was taken back to operative suite and after undergoing successful general intubation by the department of anesthesia was placed in prone position on Joshua table atop Dimitris frame. All bony prominences were padded and the eyes were inspected to ensure there was no external pressure placed upon them. At this point the thoracolumbar spine was prepped and draped in normal sterile fashion. Sharp dissection with the assistance of Bovie cautery performed down to and exposing the lamina and transverse processes of T12, L1, 2, 3, instrumentation at L3, 4, 5 and S1 levels bilaterally. I then proceeded to remove the hardware bilaterally at 3, 4, 5 and S1 exploring the fusion mass noting it to be intact. I then performed a complete laminectomy of L2, 3 and partial laminectomy of T12 including resection of the medial facets and foramina bilaterally to address severe stenosis. Also addressed the degenerative scoliosis loosening the facet joints and the posterior elements. After this was complete, pedicle screws were then placed in T12, 1, 2, 3, 4, 5 and S1 levels as well as placement of bilateral iliac bolts and through a transforaminal approach on the right, a complete discectomy of L2-3 was performed. Endplates were curetted to subcortical bleeding bone and 8 x 22 mm PEEK cage filled with DBM tapped into position. I then proceeded to L1-2 and at this time through a transforaminal approach on the left, a complete discectomy was performed, endplates curetted to subcortical bleeding bone and 8 x 22 mm PEEK cage filled with DBM tapped into position. This created significant improvement in overall alignment. Appropriate sized rods were then cut, contoured and locked into final position bilaterally including a crosslink. At this time, the SI joints were burred to subcortical bleeding bone and packed with Infuse collagen sponge and Mastergraft as well as the lamina and lateral masses of T11, T12, L1, 2 and 3. After placement of bone graft 7 flat LEONELA drain was inserted. Incision was closed with 1-0 Vicryl in the fascia, 2-0 Vicryl subcutaneously, 4-0 Monocryl for final skin closure. Steri-Strips and sterile dressing placed. The patient was awakened and taken to PACU in stable condition. I attest to the content of the Intraoperative Record and any orders documented therein. Any exception s are noted below.
[2017-03-29] MEDS ORDERED: GLUCOSE 40% GEL 15 GM TUBE PO PRN (13:45)
[2017-03-29] MEDS ORDERED: DEXTROSE 50% 50 ML SYR IV PRN (13:45)
[2017-03-29] MEDS ORDERED: GLUCOSE 10 TABS/TUBE PO PRN (13:45)
[2017-03-29] MEDS ORDERED: GLUCAGON FOR INJ 1 MG VIAL SQ PRN (13:45)
--- NOTE | 2017-03-29 13:58 | Pharmacy Progress Note ---
Glycemic Control Intl Consult Date of Service Mar 29, 2017. Scope Glycemic Pharmacist consulted by Dr Celeste on 03/29/17 for glycemic control and to write orders per [facility] inpatient glycemic control protocol Objective Weight (Kilograms): 75.90 Accuchecks BSG (last 24hrs): Test 03/29/17 07:51 03/29/17 13:17 Bedside Glucose 128 mg/dl (70-90) 191 mg/dl (70-90) HbA1c Item Value Date Time Hemoglobin A1c 6.8 % H 12/22/16 1016 Recent Pertinent Medications Outpatient Anti-diabetic Regimen: * Lantus 16 units SQ HS * Metofmrin 500mg in AM + 1,000mg in PM Risk Factors for Insulin Resistance: * Steroids * Recent Surgery * Diet Assessment & Plan ASSESSMENT: * 77yo T2DM female with adequate outpatient control per recent A1c of 6.8% in 2016 * Dexamethasone & stress from surgery will cause severe hyperglycemia * Increased basal insulin plus aggressive bolus insulin needed for duration of steroids. Will then taper back to outpatient dosing * ADA & AACE recommend a goal blood sugar range 140-180 mg/dl for the majority of critically ill & non-critically ill patients. However, more stringent targets may be selected in individual cases. Will utilize more stringent goal of 110-140mg/dl based on patient age & comorbidities. Additionally, tighter glycemic control is warranted to facilitate wound/infection healing. PLAN FOR INPATIENT GLYCEMIC CONTROL: * Hold outpatient oral diabetes medications {metformin} * Will resume metformin just prior to discharge after renal function and PO intake assessed * Basal insulin * Stress outpatient dosing tonight: Lantus 26 units SQ x 1 * Additional dose of Lantus tomorrow morning based on BSG BSG below 180mg/dl --> 7 units of Lantus BSG 180mg/dl or above --> 13 units of Lantus * Then, resume outpatient dosing of Lantus 16 units SQ HS * Bolus insulin * NovoLog per scale ACHS or Q6hrs while NPO. Additional checks + coverage at 0000 & 0400 for hyperglycemia secondary to RTC dxm * Goal Range: Low 110 mg/dL - High 140 mg/dL * Correction Factor: 20 mg/dL/unit * Nutritional / Prandial insulin per carb ratio of 1 unit per 7 grams CHO consumed * Please note that the plan above was derived based on current level of insulin resistance and hospital stress. These recommendations are appropriate for inpatient admission only. Plan of care upon discharge will need to be reassessed to avoid potential outpatient hypo/hyperglycemia. Thank you.
[2017-03-29] MEDS ORDERED: ACETAMINOPHEN 1000 MG/100 ML IV IV ONE (14:18)
[2017-03-29] MEDS ORDERED: NURSING VERBAL MED ORDER ONE (14:18)
--- NOTE | 2017-03-29 14:45 | Anesthesiology Progress Note ---
Anesthesia Post Op Note Date & Time Mar 29, 2017 at 14:46 Vital Signs Pain Intensity: 4 Vital Signs Past 12 Hours Date Time Temp Pulse Resp B/P (MAP) Pulse Ox O2 Delivery O2 Flow Rate FiO2 03/29/17 14:20 36.1 62 12 142/67 96 Nasal Cannula 4 03/29/17 14:10 70 14 151/61 95 Nasal Cannula 4 03/29/17 14:00 53 16 151/64 99 Nasal Cannula 4 03/29/17 13:50 51 12 146/68 95 Nasal Cannula 4 03/29/17 13:40 58 13 184/73 100 Nasal Cannula 4 03/29/17 13:30 68 20 169/56 95 Nasal Cannula 4 03/29/17 13:20 55 12 197/63 99 Mask 10 03/29/17 13:10 58 16 159/70 100 Mask 10 03/29/17 13:00 63 14 174/77 100 Mask 10 03/29/17 12:52 36.5 69 14 161/68 98 Mask 10 03/29/17 08:49 36.6 61 20 156/85 95 Room Air Notes Mental Status: alert / awake / arousable, participated in evaluation Pt Amnestic to Procedure: Yes Nausea / Vomiting: adequately controlled Pain: adequately controlled Airway Patency, RR, SpO2: stable & adequate BP & HR: stable & adequate Hydration State: stable & adequate Anesthetic Complications: no major complications apparent
[2017-03-29] MEDS ORDERED: INSULIN GLARGINE SOLOSTAR 100 UNITS/ML 3 ML PEN SC SCH (16:00)
[2017-03-29] MEDS: CEFAZOLIN IV 2,000 MG in DEXTROSE 5% 50ML 50 ML IV SCH (16:43)
[2017-03-29] MEDS: LACTATED RINGER'S 1000ML 1,000 ML IV SCH ×2 (16:43→22:11)
[2017-03-29] MEDS: DEXAMETHASONE INJ 6 MG in SYRINGE 0 ML IV SCH (17:33)
[2017-03-29] MEDS: INSULIN ASPART 100 UNITS/ML 3 ML PEN SC SCH ×3 (18:41→23:38)
[2017-03-29] MEDS: DOCUSATE SODIUM/SENNA 50/8.6MG TAB PO SCH (20:45)
[2017-03-29] MEDS: ASPIRIN 81 MG ECTAB PO SCH (20:45)
[2017-03-29] MEDS: CARVEDILOL 6.25 MG TAB PO SCH (20:47)
[2017-03-29] MEDS ORDERED: PREGABALIN 150 MG CAP PO SCH (21:00)
[2017-03-29] MEDS ORDERED: PREGABALIN 75 MG CAP PO SCH (21:00)
[2017-03-29] MEDS ORDERED: ACETAMINOPHEN 500 MG TAB PO PRN (22:00)
[2017-03-29] MEDS: ACETAMINOPHEN IV 100 ML IV PRN (22:11)
[2017-03-30] VITALS (11 sets, daily range): BP systolic 111–155; BP diastolic 50–68; PULSE 76–92; TEMP 36.3–36.7; O2SAT 91–97
[2017-03-30] MEDS: DEXAMETHASONE INJ 6 MG in SYRINGE 0 ML IV SCH ×2 (01:49→09:11)
[2017-03-30] MEDS: CEFAZOLIN IV 2,000 MG in DEXTROSE 5% 50ML 50 ML IV SCH (01:49)
[2017-03-30] MEDS: INSULIN ASPART 100 UNITS/ML 3 ML PEN SC SCH ×5 (04:11→21:43)
[2017-03-30] MEDS: LACTATED RINGER'S 1000ML 1,000 ML IV SCH (04:12)
[2017-03-30] MEDS ORDERED: DC PCA ONE (06:00)
[2017-03-30] MEDS ORDERED: NURSING DECISION MEDICATION ORDER SCH (06:00)
[2017-03-30] MEDS: PREGABALIN 75 MG CAP PO SCH ×2 (06:11→14:18)
[2017-03-30 07:48] LABS: HEMATOCRIT 22.8 % (37-47); IG% 0.2 %; LYMPH % 9.6 %; LYMPH ABS # 0.98 K/uL (1.2-3.4); MEAN CELL VOLUME 88.7 fL (80-100); MEAN CORPUSCULAR HEMOGLOBIN 31.5 pg (25-34); MEAN CORPUSCULAR HGB CONC 35.5 g/dl (32-36); MEAN PLATELET VOLUME 10.3 fL (7.4-10.4); MONO % 2.5 %; NEUT % 87.7 %; PLATELET COUNT 139 K/uL (130-400); RED BLOOD COUNT 2.57 M/uL (4.2-5.4)
--- NOTE | 2017-03-30 08:19 | Clinical Documentation Query ---
MINNA Garcia : CLINICAL DOCUMENTATION QUERY Patient is a 77 year old female who on 03/29 underwent T12-L2 decompression, removal ofinstrumentation L3-S1, fusion T12-S1 with b/l iliac bolts and SI joint fusion. EBL for the procedure was 1100 ml's with subsequently documented losses totaling an additional 570 ml's to date. Preoperative hemoglobin and hematocrit were 12.6 g/dl and 36.5%. POD #1, repeat values are 8.1 g/dl and 22.8%. She is being monitored with I/O including drain outputs and serial hematology. As appropriate, consider clarification as suggested below as this impacts DRG assignment. Thank you. In your clinical opinion is this patient being managed for: ( ) Acute blood loss anemia ( ) Other explanation of clinical findings (Please Explain) ( ) Unable to determine (Please Define) ( ) Need to Discuss ( ) Not Agree The medical record reflects the following clinical findings, treatment, and risk factors. Clinical Indicators: As above Treatment: She is being monitored with I/O including drain outputs and serial hematology. Risk Factors: Acute perioperative blood losses Please clarify and document your clinical opinion in the progress notes and discharge summary. Terms such as "probable", "suspected", "likely", "questionable", "possible", or "still to be ruled out" are acceptable. IF IN AGREEMENT, YOU MUST DOCUMENT ABOVE DIAGNOSTIC STATEMENT IN DAILY PROGRESS NOTES AND DISCHARGE SUMMARY. This document is not part of the patient's record. Thank You, Kenji Stanley, FAUSTO [phone]
[2017-03-30 08:28] LABS: COMPLETE YES
[2017-03-30 08:45] LABS: BUN/CREATININE RATIO 19.2 (10-20); CREATININE 0.98 mg/dl (0.60-1.20); POTASSIUM 3.8 mmol/L (3.5-5.1)
[2017-03-30] MEDS ORDERED: INSULIN GLARGINE SOLOSTAR 100 UNITS/ML 3 ML PEN SC ONE ×2 (09:00→12:00)
[2017-03-30] MEDS: CARVEDILOL 6.25 MG TAB PO SCH ×2 (09:09→20:46)
[2017-03-30] MEDS: INDAPAMIDE 1.25 MG TAB PO SCH (09:09)
[2017-03-30] MEDS: HYDROmorphone INJ 1 MG/ML SYR IV PRN (09:21)
--- NOTE | 2017-03-30 09:52 | Pharmacy Progress Note ---
Glycemic Control: Progress Nt Date of Service Mar 30, 2017. Scope Glycemic Pharmacist consulted by on 03/29/17 for glycemic control and to write orders per [facility] inpatient glycemic control protocol. Objective Accuchecks BSG (last 24hrs): Test 03/29/17 13:17 03/29/17 16:53 03/29/17 20:40 03/29/17 23:33 Bedside Glucose 191 mg/dl (70-90) 208 mg/dl (70-90) 225 mg/dl (70-90) 220 mg/dl (70-90) Test 03/30/17 04:06 03/30/17 07:31 03/30/17 07:57 Bedside Glucose 193 mg/dl (70-90) 170 mg/dl (70-90) Random Glucose 157 mg/dl (70-99) Laboratory Data (last 24hrs) Test 03/30/17 07:31 Anion Gap 9.0 mmol/L BUN/Creatinine Ratio 19.2 Blood Urea Nitrogen 19 mg/dl Creatinine 0.98 mg/dl Potassium Level 3.8 mmol/L Sodium Level 140 mmol/L White Blood Count 10.20 K/uL Red Blood Count 2.57 M/uL Hemoglobin 8.1 g/dL Hematocrit 22.8 % Mean Corpuscular Volume 88.7 fL Mean Corpuscular Hemoglobin 31.5 pg Mean Corpuscular Hemoglobin Concent 35.5 g/dl Platelet Count 139 K/uL Mean Platelet Volume 10.3 fL Neutrophils (%) (Auto) 87.7 % Lymphocytes (%) (Auto) 9.6 % Monocytes (%) (Auto) 2.5 % Eosinophils (%) (Auto) 0.0 % Basophils (%) (Auto) 0.0 % Neutrophils # (Auto) 8.94 K/uL Lymphocytes # (Auto) 0.98 K/uL Monocytes # (Auto) 0.26 K/uL Eosinophils # (Auto) 0.00 K/uL Basophils # (Auto) 0.00 K/uL Recent Pertinent Medications Outpatient Anti-diabetic Regimen: * Lantus 16 units PM, Metformin 500mg AM, 1000mg PM * A1c = 6.8 % from 12/22/16 Risk Factors for Insulin Resistance: * Steroids: Decadron IV periop, last dose of 6mg this morning. * Recent Surgery: POD1, spine surgery * Diet:DM2 Assessment & Plan ASSESSMENT: * ADA & AACE recommend a goal blood sugar range 140-180 mg/dl for the majority of critically ill & non-critically ill patients. However, more stringent targets may be selected in individual cases. Initial: * 77yo T2DM female with adequate outpatient control per recent A1c of 6.8% in 2016 * Dexamethasone & stress from surgery will cause severe hyperglycemia * Increased basal insulin plus aggressive bolus insulin needed for duration of steroids. Will then taper back to outpatient dosing 03/30/17: * BSG control has improved this morning. BSGs ranging 157 - 225 mg/dl the past 12 hours. FBG this morning was 157 mg/dl. * BSGs should improve as the effect of IV DXM wears off. Last dose of DXM this morning. * Will resume home dose of Lantus tonight at bedtime. * Will loosen Novolog CF/CR at bedtime tonight. * Add overnight check at 02 to ensure BSG control is maintained overnight in setting of steroids. * Consider restarting Metformin tomorrow. PLAN FOR INPATIENT GLYCEMIC CONTROL: * Continue Lantus 16 units HS * Novolog ACHS + 02 * Continue correction factor 20 mg/dl/unit until bedtime then loosen to 30 mg/ dl/unit * Continue carb ratio 1 unit per 7 grams CHO consumed until bedtime then loosen to 1 unit per 10 grams of CHO consumed * Continue goal range Low 110 mg/dL - High 140 mg/dL RECOMMENDATIONS FOR DISCHARGE: * * Please note that the plan above was derived based on current level of insulin resistance and hospital stress. These recommendations are appropriate for inpatient admission only. Plan of care upon discharge will need to be reassessed to avoid potential outpatient hypo/hyperglycemia. Thank you.
--- NOTE | 2017-03-30 10:22 | Anesthesiology Progress Note ---
Anesthesia Post Op Note Date & Time Mar 30, 2017 at 10:21 Vital Signs Pain Intensity: 5.0 Vital Signs Past 12 Hours Date Time Temp Pulse Resp B/P (MAP) Pulse Ox O2 Delivery O2 Flow Rate FiO2 03/30/17 07:40 36.3 77 17 124/67 (86) 93 Room Air 03/30/17 04:00 36.4 88 17 122/61 (81) 93 Room Air 03/29/17 23:32 Room Air 03/29/17 23:13 36.4 61 20 125/66 (85) 96 Room Air Notes Mental Status: alert / awake / arousable, participated in evaluation Pt Amnestic to Procedure: Yes Nausea / Vomiting: adequately controlled Pain: adequately controlled Airway Patency, RR, SpO2: stable & adequate BP & HR: stable & adequate Hydration State: stable & adequate Anesthetic Complications: no major complications apparent Anesthetic Complications: Small skin tear to right upper cheek. Explained likely from ETT tape. Pt verbalized understanding.
--- NOTE | 2017-03-30 10:34 | Anesthesiology Progress Note ---
Anesthesia Post Op Note Date & Time Mar 30, 2017 at 10:35 Vital Signs Pain Intensity: 5.0 Vital Signs Past 12 Hours Date Time Temp Pulse Resp B/P (MAP) Pulse Ox O2 Delivery O2 Flow Rate FiO2 03/30/17 07:40 36.3 77 17 124/67 (86) 93 Room Air 03/30/17 04:00 36.4 88 17 122/61 (81) 93 Room Air 03/29/17 23:32 Room Air 03/29/17 23:13 36.4 61 20 125/66 (85) 96 Room Air Notes Mental Status: alert / awake / arousable, participated in evaluation Pt Amnestic to Procedure: Yes Nausea / Vomiting: adequately controlled Pain: adequately controlled Airway Patency, RR, SpO2: stable & adequate BP & HR: stable & adequate Hydration State: stable & adequate Anesthetic Complications: no major complications apparent
[2017-03-30] MEDS: HYDROCODONE/ACETAMOPHEN 5/325MG TAB PO PRN ×2 (11:51→14:14)
[2017-03-30] MEDS ORDERED: HYDR-5688 PO (13:02)
--- NOTE | 2017-03-30 13:03 | Discharge Instructions ---
Discharge Instructions Date of Service Mar 30, 2017. Admission Reason for Admission: Lumbar Spinal Stenosis Discharge Discharge Diagnosis / Problem: stenosis Discharge Goals Goal(s): Improve function Activity Recommendations Activity Limitations: per Instructions/Follow-up section . Instructions / Follow-Up Instructions / Follow-Up ACTIVITY RECOMMENDATIONS: SELF CARE INSTRUCTIONS AFTER THORACIC/LUMBAR FUSIONS 1. You may walk to your tolerance. It is good exercise for your legs and back. Expect some back and intermittent leg aches and pains. 2. You may perform "counter-top" level activities (make a sandwich, lynn with a project, etc.). 3. No bending or lifting of more than 10 pounds or back twisting of any nature (roll like a log when turning in bed). 4. You may ride in a car for 20-30 minutes at a time. No driving until after your first visit with your doctor. 5. Frequent changes of position and restricting sitting to 30 minutes at a time will help limit the amount of back spasms and stiffness you may experience. 6. You may discontinue the use of ambulatory aids (cane, crutches, etc.) once your strength and confidence allow. 7. You may salesforce business analyst the shower and let water strike your incision when you arrive home at least once daily. Do not take a tub bath, sit in a hot tub or go into a swimming pool until after your first recheck in the office. SPECIAL CARE INSTRUCTIONS: VERY IMPORTANT TO READ AND REVIEW A. Your surgical incision has been closed with a cosmetic suture under the skin that will dissolve in about 6 weeks. In 14 days, you can use a pair of clean scissors and cut the suture that is left outside of the skin at the ends of your incision. 1. The small skin tapes can be removed 7 days after surgery if they have not fallen off by that point. 2. You may keep the wound open to air as much as possible to promote healing after post-op day number 5 unless told otherwise by your doctor. 3. If you think the wound looks like it is becoming infected (redness or worsening drainage) and/or you are experiencing fever, chill or worsening back pain and muscle spasms, contact the office so that we may evaluate you as soon as possible. B. Complications are uncommon, but please contact us if you have any signs or symptoms of: 1. wound infection (fever higher than 102.5 degrees F, redness, separation of wound, drainage, or increasing pain from the incision) 2. blood clots in legs (pain, swelling, redness and warmth in legs) 3. urinary tract infection (fever higher than 102.5 degrees F, burning upon urination or increased frequency of urination) 4. nerve problems (inability to walk on your toes or heels, numbness, loss of bowel or bladder control) 5. any other symptoms that concern you C. Please call the office at if you have any concerns or questions about your operation or recovery. D. No smoking! Smoking drastically decreases the chance of a solid fusion. E. Do not take any anti-inflammatory medications (Indocin, Advil, Motrin, Aspirin, Naprosyn, etc.) as these may inhibit the chance of a solid fusion. Tylenol is okay to take for pain. MANAGING PAIN AFTER SPINAL SURGERY 1. Narcotic medication is intended for short-term use and will be provided for surgical pain. Surgical pain usually lasts for a period of 4-6 weeks. Narcotic medication includes Percocet, Vicodin, Darvocet, Tylenol #3 or Lortab. 2. Longer-term pain is more appropriately treated with non-narcotic medication such as Tylenol ES. 3. Muscle spasm is not appropriately treated with narcotics. Muscle relaxers such as Soma, Flexeril or Skelaxin can be used along with Tylenol ES. 4. Remember that we all live with some "aches and pains". This is not unusual or uncommon after an injury or as we get older. a. Back pain is expected and may include muscle spasms for 4 to 6 weeks after surgery. The pain should gradually improve. If the pain worsens for no apparent reason, please contact the office. b. Intermittent leg pain may also be experienced and should not be concerned about unless it worsens for no apparent reason. If so, please contact the office. 5. We will provide appropriate medication within the normal guidelines of their prescribed use. We will also be very cautious and aware of potential abuse and extended duration of patients' medication needs. a. Pain medications are for your comfort and to assist with sleep and rest so that the tissue can heal. They are not provided in order to return to normal activity and should not be used through the day. To do so or worsening pain at night can result from ongoing tissue damage and development of tolerance to the prescribed medicine. 6. Please allow 2-3 days to process refills. Prescriptions will not be mailed but must be picked up at the office. FOLLOW UP VISIT: Keep your scheduled follow-up appointment. Any questions, please call the office at . Current Hospital Diet Patient's current hospital diet: Diabetes Type 2 Diet Discharge Diet Recommended Diet: Regular Diet Procedures Procedures Performed: T12-L2 Lumbar Laminectomy, Decompression; Pedicle Screw Fixation; Placement of Interbody Device AT L1-L2 AND L2-L3; T12-S1 Posterolateral Fusion; Application of Allograft; Bone Morphogenetic Protein, Iliac [place] Fixation; L3-S1 Hardware Removal Pending Studies Studies pending at discharge: no Medical Emergencies . Who to Call and When: Medical Emergencies: If at any time you feel your situation is an emergency, please call 911 immediately. . Non-Emergent Contact Non-Emergency issues call your: Primary Care Provider . "Provider Documentation" section prepared by Brandon Celeste. . VTE Core Measure Inpt VTE Proph given/why not?: Velma Garsia, SCD's
[2017-03-30] MEDS ORDERED: NURSING VERBAL MED ORDER ONE (14:30)
--- NOTE | 2017-03-30 15:02 | PROGRESS NOTE ---
DATE: 03/30/2017 DATE: 03/30/2017. SUBJECTIVE: Postop day 1. Back pain controlled. Leg pain improved. Vital signs stable. T-max 36.5. LEONELA drain 250 mL. Hematocrit 22.8. OBJECTIVE: On exam, the patient is in chair at bedside. She does appear somewhat fatigued. She has good strength to testing. ASSESSMENT: Status post thoracolumbar fusion. PLAN: At this time, we will transfuse 1 more unit in light of her declining hematocrit, see if this can provide a bit more strength and comfort for the patient. We will continue physical therapy, consider [facility] in the next few days.
[2017-03-30] MEDS: [UNRECOGNIZED DRUG - OTHER] SCH (16:00)
[2017-03-30] MEDS: PREGABALIN 150 MG CAP PO SCH (20:05)
[2017-03-30] MEDS: [UNRECOGNIZED DRUG - OTHER] OPB SCH (20:45)
[2017-03-30] MEDS: DOCUSATE SODIUM/SENNA 50/8.6MG TAB PO SCH (20:46)
[2017-03-30] MEDS: ASPIRIN 81 MG ECTAB PO SCH (20:46)
[2017-03-30] MEDS: GLUCOSAMINE SULFATE 500 MG CAP PO SCH (20:46)
[2017-03-30] MEDS: INSULIN GLARGINE SOLOSTAR 100 UNITS/ML 3 ML PEN SC SCH (21:35)
[2017-03-31] MEDS: [UNRECOGNIZED DRUG - OTHER] SCH
[2017-03-31] MEDS: HYDROCODONE/ACETAMOPHEN 5/325MG TAB PO PRN ×5 (00:13→19:22)
[2017-03-31] MEDS ORDERED: INSULIN ASPART 100 UNITS/ML 3 ML PEN SC SCH (02:00)
[2017-03-31 03:27] VITALS: BP 146/70; PULSE 71; TEMP 36.6; O2SAT 94
[2017-03-31] MEDS: POLYETHYLENE (MIRALAX) 17 GM PACK PO SCH ×4 (06:18→23:03)
[2017-03-31] MEDS: PREGABALIN 75 MG CAP PO SCH ×2 (06:18→14:12)
[2017-03-31 07:55] VITALS: BP 127/71; PULSE 70; TEMP 36.6; O2SAT 91
[2017-03-31] MEDS: [UNRECOGNIZED DRUG - OTHER] OPB SCH ×2 (09:22→19:29)
[2017-03-31] MEDS: GLUCOSAMINE SULFATE 500 MG CAP PO SCH ×2 (09:25→19:39)
[2017-03-31] MEDS: INDAPAMIDE 1.25 MG TAB PO SCH (09:26)
[2017-03-31] MEDS: RANITIDINE HCL 150 MG TAB PO SCH (09:26)
[2017-03-31] MEDS: INSULIN ASPART 100 UNITS/ML 3 ML PEN SC SCH ×4 (09:34→20:53)
[2017-03-31 10:42] LABS: HEMATOCRIT 26.1 % (37-47)
--- NOTE | 2017-03-31 11:34 | Pharmacy Progress Note ---
Glycemic Control: Progress Nt Date of Service Mar 31, 2017. Scope Glycemic Pharmacist consulted by on 03/29/17 for glycemic control and to write orders per [facility] inpatient glycemic control protocol. Objective Accuchecks BSG (last 24hrs): Test 03/30/17 11:51 03/30/17 17:58 03/30/17 20:54 03/31/17 02:01 Bedside Glucose 251 mg/dl (70-90) 208 mg/dl (70-90) 162 mg/dl (70-90) 118 mg/dl (70-90) Test 03/31/17 08:11 Bedside Glucose 116 mg/dl (70-90) Recent Pertinent Medications Outpatient Anti-diabetic Regimen: * Lantus 16 units PM, Metformin 500mg AM, 1000mg PM * A1c = 6.8 % from 12/22/16 Risk Factors for Insulin Resistance: * Steroids: Decadron IV periop, last dose of 6mg yesterday AM * Recent Surgery: POD2, spine surgery * Diet:DM2 Assessment & Plan ASSESSMENT: * ADA & AACE recommend a goal blood sugar range 140-180 mg/dl for the majority of critically ill & non-critically ill patients. However, more stringent targets may be selected in individual cases. Initial: * 77yo T2DM female with adequate outpatient control per recent A1c of 6.8% in 2016 * Dexamethasone & stress from surgery will cause severe hyperglycemia * Increased basal insulin plus aggressive bolus insulin needed for duration of steroids. Will then taper back to outpatient dosing 03/30/17: * BSG control has improved this morning. BSGs ranging 157 - 225 mg/dl the past 12 hours. FBG this morning was 157 mg/dl. * BSGs should improve as the effect of IV DXM wears off. Last dose of DXM this morning. * Will resume home dose of Lantus tonight at bedtime. * Will loosen Novolog CF/CR at bedtime tonight. * Add overnight check at 02 to ensure BSG control is maintained overnight in setting of steroids. * Consider restarting Metformin tomorrow. 03/31/17: * BSGs spiked into the 200s yesterday afternoon presumably in response to the DXM given in the morning despite an effort to counter its effects with Lantus. I ordered an additional dose of Lantus yesterday afternoon to cover the long acting effects of DXM. Hyperglycemia has since resolved and today's FBG is 116 mg/dl. * Will resume Metformin this evening and resume home dose of Lantus tonight. No additional AM Lantus should be needed unless steroids are resumed. * Will discontinue Novolog CR tomorrow morning since Metformin will be restarted later today. * Cut Novolog 02 check. PLAN FOR INPATIENT GLYCEMIC CONTROL: * Continue Lantus 16 units HS * Novolog ACHS * Continue correction factor of 30 mg/dl/unit * Continue carb ratio of 1 unit per 10 grams of CHO consumed; discontinue after today * Continue goal range Low 110 mg/dL - High 140 mg/dL RECOMMENDATIONS FOR DISCHARGE: * A1c = 6.8% from 12/22/16 indicating well controlled BSGs on current outpatient DM regimen. A1c is borderline outdated at this point, however, the pt received blood transfusions this admission so I would advise against ordering another A1c as it would not be entirely accurate. * Recommend resuming outpatient DM regimen upon discharge. * Please note that the plan above was derived based on current level of insulin resistance and hospital stress. These recommendations are appropriate for inpatient admission only. Plan of care upon discharge will need to be reassessed to avoid potential outpatient hypo/hyperglycemia. Thank you.
--- NOTE | 2017-03-31 13:13 | PROGRESS NOTE ---
DATE: 03/31/2017 DATE: 03/31/2017. SUBJECTIVE: Postop day 2. Back pain is controlled. Leg pain improved. Vital signs stable. T-max 36.6. LEONELA drained 55 mL today. Hematocrit is 26.1. OBJECTIVE: On exam, the patient has good strength to testing. Appears comfortable. ASSESSMENT: Status post thoracolumbar fusion. PLAN: At this time, we are anticipating discharge to [facility] either Monday or Monday.
[2017-03-31] MEDS: CARVEDILOL 6.25 MG TAB PO SCH ×2 (14:13→19:37)
[2017-03-31 14:55] VITALS: BP 147/66; PULSE 64; TEMP 36.8; O2SAT 92
[2017-03-31] MEDS: METFORMIN HCL 500 MG TAB PO SCH (19:16)
[2017-03-31] MEDS: BALSALAZIDE 750 MG CAP PO SCH (19:36)
[2017-03-31] MEDS: ASPIRIN 81 MG ECTAB PO SCH (19:38)
[2017-03-31] MEDS: DOCUSATE SODIUM/SENNA 50/8.6MG TAB PO SCH (19:41)
[2017-03-31] MEDS: PREGABALIN 150 MG CAP PO SCH (19:45)
[2017-03-31] MEDS: INSULIN GLARGINE SOLOSTAR 100 UNITS/ML 3 ML PEN SC SCH (19:50)
[2017-03-31 22:59] VITALS: BP 137/64; PULSE 68; TEMP 36.6; O2SAT 91
[2017-04-01] MEDS: POLYETHYLENE (MIRALAX) 17 GM PACK PO SCH ×2 (02:46→12:00)
[2017-04-01] MEDS: HYDROCODONE/ACETAMOPHEN 5/325MG TAB PO PRN (03:57)
[2017-04-01 06:58] VITALS: BP 145/66; PULSE 65; TEMP 36.7; O2SAT 90
[2017-04-01] MEDS: ONDANSETRON INJ 2 MG/ML 2 ML VIAL IV PRN ×2 (07:38→17:44)
[2017-04-01] MEDS: HYDROmorphone INJ 1 MG/ML SYR IV PRN (07:50)
[2017-04-01] MEDS: INSULIN ASPART 100 UNITS/ML 3 ML PEN SC SCH ×4 (08:00→21:00)
[2017-04-01] MEDS: [UNRECOGNIZED DRUG - OTHER] OPB SCH ×2 (09:37→21:49)
--- NOTE | 2017-04-01 10:10 | PROGRESS NOTE ---
DATE: 04/01/2017 DATE: 04/01/2017. SUBJECTIVE: Complaining of some dizziness today. No leg pain. Back pain controlled. Vital signs stable. T-max 36.7. LEONELA drained 285 mL yesterday. Bowels working well. OBJECTIVE: On exam she is sitting up the bed, has good strength to testing. ASSESSMENT: Status post lumbar decompression and fusion. PLAN: At this time, we will withhold her [place]. She seems to struggle with this medication. Anticipate being able to remove her drain tomorrow and discharge to [facility] tomorrow.
[2017-04-01] MEDS: INDAPAMIDE 1.25 MG TAB PO SCH (10:27)
[2017-04-01] MEDS: METFORMIN HCL 500 MG TAB PO SCH ×2 (10:27→18:43)
[2017-04-01] MEDS: GLUCOSAMINE SULFATE 500 MG CAP PO SCH ×2 (10:27→21:25)
[2017-04-01] MEDS: RANITIDINE HCL 150 MG TAB PO SCH (10:27)
[2017-04-01] MEDS: CARVEDILOL 6.25 MG TAB PO SCH ×2 (10:28→21:24)
[2017-04-01] MEDS: BALSALAZIDE 750 MG CAP PO SCH ×3 (10:28→21:25)
[2017-04-01] MEDS: PREGABALIN 75 MG CAP PO SCH ×2 (10:31→14:55)
--- NOTE | 2017-04-01 11:36 | Pharmacy Progress Note ---
Glycemic Control: Progress Nt Date of Service Apr 01, 2017. Scope Glycemic Pharmacist consulted by Dr Celeste on 03/29/17 for glycemic control and to write orders per [facility] inpatient glycemic control protocol. Objective Accuchecks BSG (last 24hrs): Test 03/31/17 12:17 03/31/17 17:08 03/31/17 20:41 04/01/17 06:56 Bedside Glucose 116 mg/dl (70-90) 91 mg/dl (70-90) 159 mg/dl (70-90) 117 mg/dl (70-90) HbA1c: 6.8% 12/22/16 Recent Pertinent Medications Outpatient Anti-diabetic Regimen: * Lantus 16 units Q PM * Metformin 500mg AM + 1000mg PM * A1c = 6.8 % 12/22/16 The patient is currently receiving: * Basal insulin: Lantus 16 units Q HS * Correctional Insulin: Novolog Correction per scale ACHS Goal Range: Low 110 mg/dL - High 140 mg/dL Correction Factor: 30 mg/dL/unit * Prandial insulin: Per carb ratio of 1 unit per -- grams CHO consumed * Oral Agents: Metformin 1gm PO daily w/ dinner Risk Factors for Insulin Resistance: * Steroids: Last dose given 6/8 AM * Recent Surgery: POD # 3 for lumbar laminectomy, decompression, fusion * Diet: ordered T2DM diet and tolerating well Assessment & Plan ASSESSMENT: 04/01/17 * Well controlled type 2 diabetic admitted for lumbar decompression/fusion * Normally this patient is fairly well controlled on metformin monotherapy however steroids were given pre- and post-op * It has been ~48 hrs since last dose of IV dexamethasone given, would anticipate the effects of steroid on insulin resistance to be minimal at this time - BSG pattern also suggests that insulin sensitivity has improved * Agree with yesterday's plan to restart metformin as renal fxn adequate and pt tolerating diet, PM dose was ordered however AM dose has not yet been restarted - will resume this today as well. * Fasting BSG 117 this AM w/ 16 units Lantus on board - at goal and no need to change * Prandial insulin likely no longer needed at this point, will omit carb coverage, continue metformin and follow post-prandial BSGs today * Patient likely to be discharged to [facility] tomorrow per provider's note PLAN FOR INPATIENT GLYCEMIC CONTROL: * Resume outpt dose of metformin (500mg AM + 1000mg PM) * Continuing Lantus 16 units SQ HS * Continue correction factor 30 mg/dl/unit * No prandial insulin at this time (remove carb ratio) * Continuing goal range of Low 110 mg/dL - High 140 mg/dL RECOMMENDATIONS FOR DISCHARGE: * Resume outpt doses of Lantus and metformin * Please note that the plan above was derived based on current level of insulin resistance and hospital stress. These recommendations are appropriate for inpatient admission only. Plan of care upon discharge will need to be reassessed to avoid potential outpatient hypo/hyperglycemia. Thank you.
[2017-04-01] MEDS ORDERED: NURSING VERBAL MED ORDER ONE (12:15)
[2017-04-01] MEDS: ACETAMINOPHEN IV 100 ML IV PRN ×2 (12:19→23:51)
[2017-04-01 16:08] VITALS: BP 134/76; PULSE 62; TEMP 36.5; O2SAT 98
[2017-04-01] MEDS: PREGABALIN 150 MG CAP PO SCH (21:22)
[2017-04-01 21:23] VITALS: BP 155/73; PULSE 74
[2017-04-01] MEDS: DOCUSATE SODIUM/SENNA 50/8.6MG TAB PO SCH (21:24)
[2017-04-01] MEDS: ASPIRIN 81 MG ECTAB PO SCH (21:26)
[2017-04-01] MEDS: INSULIN GLARGINE SOLOSTAR 100 UNITS/ML 3 ML PEN SC SCH (21:48)
[2017-04-01 23:18] VITALS: BP 133/69; PULSE 67; TEMP 36.9; O2SAT 97
[2017-04-02] MEDS: PREGABALIN 75 MG CAP PO SCH (06:25)
[2017-04-02 07:21] VITALS: BP 127/62; PULSE 65; TEMP 36.7; O2SAT 95
[2017-04-02] MEDS: INSULIN ASPART 100 UNITS/ML 3 ML PEN SC SCH ×2 (08:00→13:11)
[2017-04-02] MEDS: RANITIDINE HCL 150 MG TAB PO SCH (09:47)
[2017-04-02] MEDS: [UNRECOGNIZED DRUG - OTHER] OPB SCH (09:47)
[2017-04-02] MEDS: BALSALAZIDE 750 MG CAP PO SCH (09:48)
[2017-04-02] MEDS: CARVEDILOL 6.25 MG TAB PO SCH (09:48)
[2017-04-02] MEDS: GLUCOSAMINE SULFATE 500 MG CAP PO SCH (09:48)
[2017-04-02] MEDS: METFORMIN HCL 500 MG TAB PO SCH (09:48)
[2017-04-02] MEDS: INDAPAMIDE 1.25 MG TAB PO SCH (09:48)
[2017-04-02] MEDS: ACETAMINOPHEN IV 100 ML IV PRN (10:23)
[2017-04-02 12:48] VITALS: BP 127/62; PULSE 65; TEMP 36.7; O2SAT 95
--- NOTE | 2017-04-02 19:18 | DISCHARGE SUMMARY ---
PRINCIPAL DIAGNOSIS: Spinal stenosis. HOSPITAL COURSE FOLLOWS: On March 29, the patient underwent thoracolumbar decompression and fusion, tolerated this well and taken to the orthopedic floor postoperatively. Postop day #1, she was to a chair. Hematocrit somewhat diminished, transfused, but throughout the rest of week progressed appropriately. Did struggle somewhat with narcotic pain medications, so these were discontinued yesterday. She feels much better. Subsequently discharged to [facility] today. Discharge orders and instructions found in the chart for further review.
[2017-06-14] MEDS ORDERED: ACET-1256 PO (09:33)
[2017-06-14] MEDS ORDERED: TRAM-10 PO (09:33)
[2017-08-11] MEDS ORDERED: MAGN250T6 PO (14:33)
[2017-08-11] MEDS ORDERED: ESTR0.3T PO (14:33)
[2017-08-11] MEDS ORDERED: PRM/3 PO (14:33)
[2017-08-11] MEDS ORDERED: LTRSCR45 EX (14:33)
[2017-08-11] MEDS ORDERED: FERR1TAB61 PO (14:33)
[2017-08-11] MEDS ORDERED: CHOL100010 PO (14:33)
[2017-08-11] MEDS ORDERED: ASCO1CAP3 PO (14:33)
[2017-08-11] MEDS ORDERED: CYNI1000 INJ (14:33)
[2017-08-11] MEDS ORDERED: GLUC1CAP35 PO (14:33)
[2017-08-11] MEDS ORDERED: RANI1TAB75 PO (14:33)
[2017-08-17] MEDS ORDERED: HYDR-5688 PO (10:43)
== END 2017-04-02 13:16 | DRG 458 ==
LOC: C.ACU 07:16 → C.MSN 08:30 → ENRESERV 14:28
PROVIDERS: ADMIT Orthopaedic Surgery Orthopaedic Surgery of the Spine; ATTEND Orthopaedic Surgery Orthopaedic Surgery of the Spine
PROC: 0SG10AJ Fusion of 2 or more Lumbar Vertebral Joints with Interbody Fusion Device, Posterior Approach, Anterior Column, Open Approach (ICD-10-PCS; principal; 2017-03-29 09:00)
PROC: 0SG804Z Fusion of Left Sacroiliac Joint with Internal Fixation Device, Open Approach (ICD-10-PCS; principal; 2017-03-29 09:00)
PROC: 0ST20ZZ Resection of Lumbar Vertebral Disc, Open Approach (ICD-10-PCS; principal; 2017-03-29 09:00)
PROC: 0SG704Z Fusion of Right Sacroiliac Joint with Internal Fixation Device, Open Approach (ICD-10-PCS; principal; 2017-03-29 09:00)
PROC: 0RGA071 Fusion of Thoracolumbar Vertebral Joint with Autologous Tissue Substitute, Posterior Approach, Posterior Column, Open Approach (ICD-10-PCS; principal; 2017-03-29 09:00)
PROC: 0SG3071 Fusion of Lumbosacral Joint with Autologous Tissue Substitute, Posterior Approach, Posterior Column, Open Approach (ICD-10-PCS; principal; 2017-03-29 09:00)
PROC: 0RG6071 Fusion of Thoracic Vertebral Joint with Autologous Tissue Substitute, Posterior Approach, Posterior Column, Open Approach (ICD-10-PCS; principal; 2017-03-29 09:00)
PROC: 0SG1071 Fusion of 2 or more Lumbar Vertebral Joints with Autologous Tissue Substitute, Posterior Approach, Posterior Column, Open Approach (ICD-10-PCS; principal; 2017-03-29 09:00)
DX: M41.9 Scoliosis, unspecified (principal); M48.06 Spinal stenosis, lumbar region; D64.9 Anemia, unspecified; I10 Essential (primary) hypertension; K58.9 Irritable bowel syndrome, unspecified; E11.9 Type 2 diabetes mellitus without complications; Z79.899 Other long term (current) drug therapy; Z79.4 Long term (current) use of insulin; Z79.82 Long term (current) use of aspirin; Z98.1 Arthrodesis status

== ENCOUNTER → 2017-07-03 | Outpatient (CLI) | payer OTHER, BC ==
[~2017-07-03] MED LIST changes: +ACET-1256 PO; -ALBUMIN HUMAN 5% 12.5 GM/250 ML VIAL IV ONE; -CEFAZOLIN 1000MG/55 ML D5W IV SCH; +HYDR-5688 PO; -IBUP-1050 PO; -LACTATED RINGER'S 1000ML 1,000 ML IV SCH; +TRAM-10 PO
== END | disposition home or self-care (01) ==
LOC: C.LABSPEC 16:30
PROVIDERS: ATTEND Dermatology
DX: R21 Rash and other nonspecific skin eruption (principal)

== ENCOUNTER → 2017-07-28 | Outpatient (CLI) | payer OTHER, BC ==
[2017-07-28 15:27] LABS: BASO % 0.2 %; BASO ABS # 0.01 K/uL (0-0.2); COMPLETE YES; EOS % 1.4 %; HEMATOCRIT 36.3 % (37-47); IG% 0.2 %; LYMPH % 42.5 %; LYMPH ABS # 2.11 K/uL (1.2-3.4); MEAN CELL VOLUME 85.8 fL (80-100); MEAN CORPUSCULAR HEMOGLOBIN 29.1 pg (25-34); MEAN CORPUSCULAR HGB CONC 33.9 g/dl (32-36); MONO % 9.1 %; NEUT % 46.6 %; PLATELET COUNT 181 K/uL (130-400); RED BLOOD COUNT 4.23 M/uL (4.2-5.4); WHITE BLOOD COUNT 4.96 K/uL (4.8-10.8)
[2017-07-28 15:33] LABS: ALT/SGPT 19 U/L (12-78); AST/SGOT 16 U/L (15-37); BLOOD UREA NITROGEN 18 mg/dl (7-18); BUN/CREATININE RATIO 21.9 (10-20); CALCIUM 8.9 mg/dl (8.5-10.1); CARBON DIOXIDE 29 mmol/L (21-32); CHLORIDE 104 mmol/L (98-107); GLUCOSE 98 mg/dl (70-99); POTASSIUM 4.1 mmol/L (3.5-5.1); SODIUM 140 mmol/L (136-145)
[2017-07-28 15:36] LABS: ALB/GLOB RATIO 0.9 (0.9-2); ALKALINE PHOSPHATASE 71 U/L (45-117); C-REACTIVE PROTEIN 0.83 mg/dl (0-0.29)
== END | disposition home or self-care (01) ==
LOC: C.LAB1850 12:42
PROVIDERS: ATTEND Internal Medicine
DX: K51.50 Left sided colitis without complications (principal)

== ENCOUNTER → 2017-11-30 | Outpatient (CLI) | payer OTHER, BC ==
[~2017-11-30] MED LIST changes: +ASCO1CAP3 PO; -CAND1TAB19 PO; -CYAN3INJ IM; +CYNI1000 INJ; +ESTR0.3T PO; +FERR1TAB61 PO; +GLUC1CAP35 PO; -GLUCTAB6 PO; -HYDR-5688 PO; +LTRSCR45 EX; +MAGN250T6 PO; -MAGNESIUM PO; -PREMARIN PO; +PRM/3 PO; +RANI1TAB75 PO; -RANITDINE PO
[2017-11-30 14:31] LABS: CREATININE RANDOM URINE 99.8 mg/dl
== END | disposition home or self-care (01) ==
LOC: C.LAB1850 11:33
PROVIDERS: ATTEND Physician Assistant
DX: E11.9 Type 2 diabetes mellitus without complications (principal)

== ENCOUNTER → 2017-12-26 | Outpatient (CLI) | payer OTHER, BC ==
[2017-12-26 16:40] LABS: BASO % 0.3 %; BASO ABS # 0.02 K/uL (0-0.2); EOS % 0.9 %; EOS ABS # 0.06 K/uL (0-0.5); HEMATOCRIT 38.7 % (37-47); HEMOGLOBIN 13.4 g/dL (12.0-16.0); IG# 0.01 K/uL (0.00-0.02); LYMPH % 36.1 %; LYMPH ABS # 2.32 K/uL (1.2-3.4); MEAN CORPUSCULAR HEMOGLOBIN 30.8 pg (25-34); MEAN CORPUSCULAR HGB CONC 34.6 g/dl (32-36); MEAN PLATELET VOLUME 10.9 fL (7.4-10.4); MONO % 7.8 %; NEUT % 54.7 %; NEUT ABS # 3.52 K/uL (1.4-6.5); PLATELET COUNT 222 K/uL (130-400); RED CELL DISTRIBUTION WIDTH CV 13.7 % (11.5-14.5); RED CELL DISTRIBUTION WIDTH SD 44.9 fL (36.4-46.3); WHITE BLOOD COUNT 6.43 K/uL (4.8-10.8)
[2017-12-26 17:12] LABS: ALBUMIN 3.8 gm/dl (3.4-5.0); ALT/SGPT 19 U/L (12-78); AST/SGOT 14 U/L (15-37); BLOOD UREA NITROGEN 16 mg/dl (7-18); CALCIUM 9.1 mg/dl (8.5-10.1); CARBON DIOXIDE 29 mmol/L (21-32); CREATININE 0.98 mg/dl (0.60-1.20); GLUCOSE 92 mg/dl (70-99); POTASSIUM 3.8 mmol/L (3.5-5.1); SODIUM 140 mmol/L (136-145)
[2017-12-26 17:13] LABS: ALKALINE PHOSPHATASE 64 U/L (45-117); TOTAL PROTEIN 7.4 gm/dl (6.4-8.2)
[2017-12-28 14:43] LABS: QUANTIF MITOGEN-NIL 9.82 IU/ML; QUANTIFERON NEGATIVE (NEGATIVE); QUANTIFERON NIL 0.07 IU/ML
== END | disposition home or self-care (01) ==
LOC: C.LAB1850 15:34
PROVIDERS: ATTEND Internal Medicine
DX: K51.50 Left sided colitis without complications (principal)

== ENCOUNTER → 2018-02-22 | Outpatient (CLI) | payer OTHER, BC ==
[~2018-02-22] MED LIST changes: -ACET-1256 PO; +ASPI-319 PO; -ASPI81TA21 PO; +CYAN1CAP3; -CYNI1000 INJ; +IBUP-1050 PO; -INDA1TAB3 PO; -TRAM-10 PO
== END | disposition home or self-care (01) ==
LOC: C.PATHSPEC 17:41
PROVIDERS: ATTEND Plastic Surgery
DX: C44.91 Basal cell carcinoma of skin, unspecified (principal)